=== PATIENT | female | born 1970 | race Two or more races ===

== ENCOUNTER → 2025-08-03 15:04 | Outpatient (BNVA) | payer OTHER, SELFPAY | PROVIDERS: PCP Internal Medicine; Visit Provider Surgery | DX: Z00.8 Encounter for other general examination (principal) ==

== ENCOUNTER 2025-08-22 08:22 | Outpatient (AMB) | payer OTHER, SELFPAY ==
--- NOTE | 2025-08-22 12:02 | A.OFFVIS_ITS ---
VS Expanded 08/22/25 12:14 Height 5 ft 2 in Weight 233 lb 4 oz BMI 42.7 Body Fat % 45.7 Body Fat Mass 106.4 Fat Free Mass 126.8 Visceral Fat Rating 15 Body Water % 38.6 Body Water Mass 90 Basal Metabolic Rate/Score 1,775 Intake Visit Reasons: [employer] [facility] BMI 42.7 Allergies bee pollen (bees) Allergy (Unknown, Verified 08/22/25 12:02) Unknown Medication List - Last Reconciled 08/22/25 by Darwin Esteves MD albuterol sulfate 90 mcg/actuation (Ventolin HFA) 2 puffs inhalation Q6H PRN atorvastatin (Lipitor) 40 mg PO DAILY clopidogrel (Plavix) 75 mg PO DAILY olmesartan-hydrochlorothiazide 40-12.5 mg 1 tab PO DAILY omeprazole 20 mg PO DAILY HPI HPI [employer] [facility] BMI 42.7: Details: Start time: 12pm, End time: 12.45pm ?I spent 40 minutes speaking with the patient on the phone plus an additional 5 minutes reviewing and updating records for a total of 45 minutes HPI Comments Details: Previous weight loss efforts: exercise Wakes up: 6am, Sleeps: midnight Breakfast: skips Lunch: 12-1pm (sandwich, salad) Dinner: 7pm (rice, chicken, vegetables) Snacks: 10am (muffin some days), 3-4pm (occasionally fruits, chips), rarely after dinner Exercise: has home elliptical Beverages: Coffee: none, Tea: none, Soda: none, Juice: 3 cups/d, daily, ETOH: none PFSH Medical History (Updated 08/22/25 @ 12:08 by Darwin Esteves MD) History of cerebral aneurysm Hyperlipidemia Asthma Hypertension GERD (gastroesophageal reflux disease) Morbid obesity Surgical History (Updated 08/03/25 @ 15:54 by Emeli Bailey CMA) Hx of colonoscopy Hx of section Family History (Updated 08/03/25 @ 15:21 by Emeli Bailey CMA) Mother No problems noted. Father No problems noted. Son GERD (gastroesophageal reflux disease) Daughter Anxiety Hypertension Telehealth Telehealth Telehealth Platform: Telephone Location of provider rendering services: practice address Location of patient: address on file Patient Identification confirmed using: Name, : Yes Telehealth method: voice only Patient verbally consented to treatment: Yes Patient verbally consented to billing insurance company: Yes Patient informed of any privacy concerns related to visit: Yes Minutes spent on Phone/Video with Pt.: 45 Assessment & Plan Assessment & Plan (1) Morbid obesity: Code(s): E66.01 - Morbid (severe) obesity due to excess calories Category: Medical Plan: 1. As we discussed, based on your present BMI you are approximately 115lbs overweight. In my opinion, for any weight loss strategy to be successful should have a high probability to help you lose at least 100lbs out of 115lbs of the extra weight you carry. We discussed in detail the available therapeutic options: 1) our lifestyle intervention program that has an average weight loss of 10% in 3 months.?Some patients continue it for longer and have lost over 50lbs but this is not common. Our lifestyle program can be provided by me or by using our software yuval, the [employer] yuval. I will provide you with a link to use the yuval if you choose to do so. We use protein shakes and protein bars to replace some of the meals of the day and cover your appetite better. We will decide together the exact combination. 2) Weight loss medications: these can be used in conjunction with our lifestyle program or you may choose to use them without following a lifestyle program from my program but your own. As we discussed, your insurance does not cover these medications. We also discussed that you can self pay for the first 3 months and the cost is $249 for the first month and $499 for any other month thereafter. These payments go to the drug company directly and not to us. 3) We also discussed about the lap sleeve gastrectomy. In my opinion this is the best option to solve your problem based on your situation and should be used in conjunction with the two previous options. A good strategy to make this decision to proceed with surgery, is to set some goals with the lifestyle intervention and medication options: If you don't lose at least 10lbs the first 6 weeks after starting the program or at least 10% in 3 months. ?I emphasized the importance of close follow-up, adherence to instructions and good communication. The surgery does not replace the need to change your lifestlyle which is the cause of the obesity problem. The surgery provides the motivation to try again to change your lifestyle, it reduces the appetite and make the transition to a better lifestyle easier and doubles the amount of weight you would lose compared to doing the lifestyle change without the surgery. You will need to be on a liquid diet with protein shakes for 2 weeks before surgery to maximize weight loss and boost your nutritional status to recover better from surgery and also for the first two weeks after surgery to let the stomach heal before we introduce other foods. After the first 2 weeks we will introduce protein bars and soft foods like scrambled eggs, cottage cheese and yogurt and after the 6th week will introduce meat, fish and cooked vegetables in small amounts. Over time you should be able to eat everything in small amounts. Side effects like nausea, vomiting, heartburn or abdominal pain are not common in the practice unless you are not following in the practice. This operation requires lifetime commitment to following in our practice and communication with me. You will much less weight and experience side effects if you don?t communicate or not following in the practice. Complications are rare and in our practice is about 1/10 of the national average. You have chosen to try our lifestyle program. 2. You will receive a link of our software yuval to generate an individualized nutritional and exercise plan specific for you. Please send me a screenshot of the plans you will generate Meal to include lean meat (beef, fish, pork, turkey, chicken), or wolof yogurt, or egg whites, or beans with a salad with olive oil and fruits (berries, pears, apples, kiwi). Avoid salt, breads, potatoes, rice, pasta, desserts. ?3. If you choose shakes, each shake would be drunk slowly, like coffee in a period of 2 hours. ?4. If you choose bars, cut each bar in 4 pieces and eat each piece in 30min ?to make each bar last 2 hours. ?5. I emphasized the importance of measuring accurately the food portion and measure it when serving the food in plate ?6. The meal portions include a specific number of forks of meat and salad. You always eat the meat portion but you can replace up to half of salad/vegetables portion with rice, potatoes or pasta, or a fruit ?if you like. The less you do it the better weight loss will be. ?7. One full-size fork is what it can be scooped on the fork without falling aside and not what can be bit with the fork. Use regular forks like those you find in a typical restaurant. ?8.? Please buy the body composition scale we discussed and send me weight measurements as soon as possible and then once a week. Always include your diet and exercise plan. 9. The best exercise choice would be to use your elliptical at home that can track calories. You can create and exercise plan with the [employer] yuval. ?10. Goal is to lose at least 1.5-2lbs per week ?11. Goal to lose at least 10% of your weight, which is about 23lbs. Minimum weight goal: 210lbs 12. Please follow the diet plan exactly without any change. If you don't like something about the plan or you feel hungry you need to communicate with me so I can help you revise the plan. You should not change the plan yourself.
[2025-08-22 12:14] VITALS: BMI 42.7
== END 2025-08-22 12:46 | disposition home or self-care (01) ==
LOC: HO.HBS 08:22
PROVIDERS: PCP Internal Medicine; Visit Provider Surgery
DX: E66.01 Morbid (severe) obesity due to excess calories (principal)
CPT/HCPCS: 99204